=== PATIENT | female | born 1935 ===

== ENCOUNTER 2016-05-05 11:28 | Emergency (ER) | payer OTHER ==
[2016-05-05 11:55] VITALS: RESP 18; TEMP 98
--- NOTE | 2016-05-05 11:55 | UCPHY ---
H & P Time Seen by Provider: 05/05/16 11:45 Patient Type: New HPI/ROS: 80-year-old female brought in by her daughter for complaint of possible dental infection, patient has had 2 root canals and 1 drainage of an abscess this morning, visiting the gum puller 3 times in the last 8 days. She has been on clindamycin briefly then was placed on metronidazole and then was placed back on clindamycin began. She comes here today with a question of whether she should be admitted for IV antibiotics. She denies fevers or chills Review of systems as per HPI-positive left upper dental pain and left facial swelling General no fever no chills no weakness HEENT no eye pain no eye discharge. No eye redness, no sore throat Respiratory no cough, no shortness of breath Cardiac no chest pain, no peripheral edema GI no abdominal pain, no diarrhea, no constipation, mild nausea, no vomiting no flank pain, no hematuria, no dysuria Musculoskeletal no myalgias, no joint pain Heme no easy bruising, no easy bleeding Endo no polyuria, no polydipsia Skin no rashes, no pruritus Neuro no syncope, no dizziness, no headaches Psych is no suicidal ideation, no homicidal ideation Past Medical/Surgical History: Hypertension, GERD Social History: Lives in [place] is here visiting family Denies alcohol or drug use Smoking Status: Former smoker Physical Exam: 80-year-old female alert and oriented in no acute distress nontoxic appearance, afebrile Atraumatic normocephalic Extraocular muscles intact, anicteric Face left upper lip with mild swelling extending to left maxillary region, mild tenderness to palpation Intraoral exam with no obvious abscess or gum swelling at this time, sutures noted above left incisor upper No erythema of throat, no exudate, mucosa moist Neck supple Lungs clear to auscultation Heart regular rate and rhythm without murmur rub or gallop Abdomen NABS soft nontender Extremities no cyanosis clubbing or edema Skin no rash Constitutional: Initial Vital Signs Temperature (C) 36.6 C 05/05/16 11:52 Heart Rate 75 05/05/16 11:52 Respiratory Rate 18 05/05/16 11:52 Blood Pressure 168/82 H 05/05/16 11:52 O2 Sat (%) 97 05/05/16 11:52 O2 Delivery Mode Room Air Allergies/Adverse Reactions: Sulfa (Sulfonamide Antibiotics) Allergy (Severe, Verified 03/25/09 17:02) delerious tapentadol HCl [From Nucynta] Allergy (Severe, Verified 12/09/09 15:24) throat closes Penicillins Allergy (Intermediate, Verified 03/25/09 17:01) Hives ciprofloxacin [Ciprofloxacin] Allergy (Mild, Verified 12/09/09 09:28) Other-Enter Comments clindamycin [Clindamycin] Allergy (Mild, Unverified 12/09/09 09:28) Unknown codeine [Codeine] Allergy (Mild, Verified 12/09/09 09:28) sick to stomach spice Allergy (Severe, Uncoded 03/25/09 17:04) throat closes Home Medications: Medication Instructions Recorded Clindamycin 05/05/16 HCTZ (*) 05/05/16 Hydrochlorothiazide 05/05/16 Metronidazole 05/05/16 PRILOSEC 05/05/16 Medical Decision Making ED Course/Re-evaluation: Patient seen and evaluated for dental pain and facial swelling, following 3 gum puller visits for root canal and abscess drainage. IV established labs drawn CBC within normal limits no elevated white blood cell count ESR normal CMP within normal limits CT maxillofacial with contrast No fluid collection no abscess, mild inflammation at alveolar ridge on left no evidence of osteomyelitis or bony destruction Impression Dental infection, status post root canal times to an abscess drainage No evidence of abscess collection Normal WBC normal sed rate Will give 1 dose of IV antibiotics and have patient continue current antibiotic regimen as prescribed by her gum puller Given return precautions - Data Points Laboratory Results: Laboratory Results 05/05/16 13:08 05/05/16 13:08 05/05/16 05/05/16 05/05/16 13:11 13:08 13:08 WBC 6.81 10^3/uL 10^3/uL (3.80-9.50) RBC 4.02 10^6/uL L 10^6/uL (4.18-5.33) Hgb 12.0 g/dL L g/dL (12.6-16.3) Hct 36.5 % L % (38.0-47.0) MCV 90.8 fL fL (81.5-99.8) MCH 29.9 pg pg (27.9-34.1) MCHC 32.9 g/dL g/dL (32.4-36.7) RDW 13.6 % % (11.5-15.2) Plt Count 241 10^3/uL 10^3/uL (150-400) MPV 9.9 fL fL (8.7-11.7) Neut % (Auto) 60.5 % % (39.3-74.2) Lymph % (Auto) 28.2 % % (15.0-45.0) [place] % (Auto) 9.1 % % (4.5-13.0) Eos % (Auto) 1.2 % % (0.6-7.6) Baso % (Auto) 0.6 % % (0.3-1.7) Nucleat RBC Rel Count 0.0 % % (0.0-0.2) Absolute Neuts (auto) 4.12 10^3/uL 10^3/uL (1.70-6.50) Absolute Lymphs (auto) 1.92 10^3/uL 10^3/uL (1.00-3.00) Absolute Monos (auto) 0.62 10^3/uL 10^3/uL (0.30-0.80) Absolute Eos (auto) 0.08 10^3/uL 10^3/uL (0.03-0.40) Absolute Basos (auto) 0.04 10^3/uL 10^3/uL (0.02-0.10) Absolute Nucleated RBC 0.00 10^3/uL 10^3/uL (0-0.01) Immature Gran % 0.4 % % (0.0-1.1) Immature Gran # 0.03 10^3/uL 10^3/uL (0.00-0.10) ESR 13 MM/HR MM/HR (0-30) Sodium 141 mEq/L mEq/L (134-144) Potassium 3.6 mEq/L mEq/L (3.5-5.2) Chloride 98 mEq/L mEq/L (97-110) Carbon Dioxide 30 mEq/l mEq/l (22-31) Anion Gap 13 mEq/L mEq/L (8-16) BUN 18 mg/dL mg/dL (7-23) Creatinine 1.0 mg/dL mg/dL (0.6-1.0) Estimated GFR 53 Glucose 116 mg/dL H mg/dL (70-100) Calcium 9.0 mg/dL mg/dL (8.5-10.4) Total Bilirubin 0.4 mg/dL mg/dL (0.1-1.4) AST 24 IU/L IU/L (14-46) ALT 32 IU/L IU/L (9-52) Alkaline Phosphatase 60 IU/L IU/L (38-126) Total Protein 5.7 g/dL L g/dL (6.3-8.2) Albumin 3.1 g/dL L g/dL (3.5-5.0) Urine Color YELLOW Urine Appearance CLEAR Urine pH 5.5 (5.0-7.5) Ur Specific [place] 1.010 (1.002-1.030) Urine Protein NEGATIVE (NEGATIVE) Urine Ketones NEGATIVE (NEGATIVE) Urine Blood NEGATIVE (NEGATIVE) Urine Nitrate NEGATIVE (NEGATIVE) Urine Bilirubin NEGATIVE (NEGATIVE) Urine Urobilinogen 0.2 EU EU (0.2-1.0) Ur Leukocyte Esterase NEGATIVE (NEGATIVE) Urine Glucose NEGATIVE (NEGATIVE) Medications Given: Discontinued Medications Clindamycin Phosphate/Dextrose (Cleocin 600 Mg (Premix)) 50 mls @ 100 mls/hr IV EDNOW ONE PRN Reason: Protocol Stop: 05/05/16 15:04 Last Admin: 05/05/16 15:04 Dose: 50 mls Lorazepam (Ativan Injection) 0.5 mg IVP EDNOW ONE Stop: 05/05/16 14:37 Last Admin: 05/05/16 15:04 Dose: 0.5 mg Departure - Departure Disposition: Home, Routine, Self-Care Clinical Impression: Dental infection Condition: Good Instructions: Dental Abscess (ED) Referrals: VIRAL CARL MD [Other] - As per Instructions - PQRS PQRS Measurement: n 134: Depression screening and followup, PRIME MD-PHQ2 (12 years and older) Over the last 2 weeks, how often have you been bothered by any of the following problems? 1. Feeling down, depressed, or hopeless? 2. Little interest or pleasure in doing things? Patient answered no to both 1 and 2 130: Documentation of medications. Reviewed all patient medications, doses, route and frequency. 226: Do you smoke? No. 47: 65 and older: Advanced care planning. Patient designates surrogate decision maker as spouse.. [Patient has advanced directive.] 51: 18 years old and older with diagnosis of COPD, spirometry performance. [Patient has no history of COPD 52: 18 years old and older with COPD and symptoms of COPD or FEV1<60% predicted prescribed a B Agonist. [Spirometry not performed; equipment not available.]
[2016-05-05] MEDS ORDERED: IOPAMIDOL (ISOVUE-300) 100 ML BTL IV ONE (12:45)
[2016-05-05 13:19] LABS: % IMMATURE GRANULYOCYTES 0.4 % (0.0-1.1); ABSOLUTE IMMATURE GRANULOCYTES 0.03 10^3/uL (0.00-0.10); ADD DIFF? NO; ADD MORPH? NO; ADD SCAN? NO; ATYPICAL LYMPHOCYTE FLAG 0 (0-99); FRAGMENT RBC FLAG 0 (0-99); HEMATOCRIT 36.5 % (38.0-47.0); LEFT SHIFT FLG 0 (0-99); LIPEMIA HEMOLYSIS FLAG 80 (0-99); MEAN CELL HEMOGLOBIN 29.9 pg (27.9-34.1); MEAN CELL HEMOGLOBIN CONCENTR. 32.9 g/dL (32.4-36.7); MEAN CELL VOLUME 90.8 fL (81.5-99.8); MEAN PLATELET VOLUME 9.9 fL (8.7-11.7); PLATELET CLUMPS FLAG 0 (0-99); PLATELET COUNT 241 10^3/uL (150-400); RED BLOOD CELL COUNT 4.02 10^6/uL (4.18-5.33); RED CELL DISTRIBUTION WIDTH 13.6 % (11.5-15.2)
[2016-05-05 13:31] LABS: SEDIMENTATION RATE 13 MM/HR (0-30)
[2016-05-05 13:39] LABS: ALBUMIN 3.1 g/dL (3.5-5.0); BILIRUBIN,TOTAL 0.4 mg/dL (0.1-1.4); POTASSIUM 3.6 mEq/L (3.5-5.2); TOTAL PROTEIN 5.7 g/dL (6.3-8.2)
[2016-05-05 14:21] LABS: LEUKOCYTE ESTERASE,URINE NEGATIVE (NEGATIVE); NITRITE,URINE NEGATIVE (NEGATIVE); PH,URINE 5.5 (5.0-7.5)
[2016-05-05 14:31] LABS: COLOR YELLOW
[2016-05-05] MEDS ORDERED: CLINDAMYCIN 600 MG/DEXTROSE 50 ML IV ONE (14:35)
[2016-05-05] MEDS ORDERED: LORazepam 2 MG/ML INJ IVP ONE (14:36)
[2016-05-05 15:20] VITALS: BP 164/66; PULSE 74; O2SAT 91
== END 2016-05-05 15:16 | disposition home or self-care (01) ==
LOC: CED 11:28
DX: K04.7 Periapical abscess without sinus (principal); K02.9 Dental caries, unspecified; Z88.0 Allergy status to penicillin; Z88.2 Allergy status to sulfonamides
CPT/HCPCS: 70487; 96365; 96375; G0463; Q9967; 80053-PO; 81003-PO; 85025-PO; 85652-PO; 99203-PO